=== PATIENT | female | born 1955 | race Caucasian/White ===

== ENCOUNTER 2016-09-16 18:32 | Emergency (ER) | payer BC ==
[~2016-09-16] VITALS: Ht 167.6 cm; Wt 78.2 kg
[2016-09-16 18:48] VITALS: O2SAT 84
[2016-09-16 19:03] LABS: BASO % 0.5 %; BASO ABS # 0.04 K/uL (0-0.2); COMPLETE YES; EOS % 1.2 %; HEMATOCRIT 42.8 % (37-47); IG% 0.1 %; LYMPH % 37.6 %; LYMPH ABS # 2.83 K/uL (1.2-3.4); MEAN CELL VOLUME 89.9 fL (80-100); MEAN CORPUSCULAR HEMOGLOBIN 29.4 pg (25-34); MEAN CORPUSCULAR HGB CONC 32.7 g/dl (32-36); MEAN PLATELET VOLUME 9.6 fL (7.4-10.4); MONO % 6.9 %; NEUT % 53.7 %; PLATELET COUNT 382 K/uL (130-400); RED BLOOD COUNT 4.76 M/uL (4.2-5.4); WHITE BLOOD COUNT 7.53 K/uL (4.8-10.8)
[2016-09-16 19:04] LABS: ISTAT CREATININE 0.8 mg/dl (0.6-1.3); ISTAT HEMOGLOBIN 15.3 g/dl (12.0-16.0); ISTAT IONIZED CALCIUM 1.15 mmol/l (1.12-1.32)
--- NOTE | 2016-09-16 19:09 | DIAGNOSTIC IMAGING REPORT ---
HEAD CT NONCONTRAST CT DOSE: 720.95 mGycm HISTORY: Altered mental status. Evaluate Fever/Sepsis TECHNIQUE: Multiaxial CT images of the head were performed without the use of intravenous contrast. Automated exposure control was utilized for this study. Comparison: None. Findings: The paranasal sinuses and mastoid air cells are clear. The calvarium and skull base are intact. There is no mass, hematoma, midline shift. The ventricles and sulci are within normal limits. Greater than expected density within the proximal left MCA likely representing a hyperdense left MCA sign. Subtle decreased density within the left caudate head consistent with the left MCA territory infarct. This is best in image 12. Impression: Hyperdense left MCA sign with decreased density within the left caudate head consistent with a left MCA territory infarct. Electronically signed by: Frank Elmore M.D. 09/16/2016 7:07 PM Dictated Date/Time: 09/16/2016 7:02 PM
[2016-09-16 19:11] VITALS: Ht 167.6 cm; Wt 78.2 kg
--- NOTE | 2016-09-16 19:24 | DIAGNOSTIC IMAGING REPORT ---
CHEST ONE VIEW PORTABLE HISTORY: Evaluate Fever/Sepsis COMPARISON: None. FINDINGS: The lungs are clear. Cardiac silhouette is normal in size. No pleural effusions. No pneumothorax. IMPRESSION: No acute process. Electronically signed by: Frank Elmore M.D. 09/16/2016 7:23 PM Dictated Date/Time: 09/16/2016 7:21 PM
[2016-09-16 19:26] LABS: ARTERIAL BLD GAS O2 SATURATION 98.1 % (90-95); ARTERIAL BLOOD GAS BASE EXCESS 1.9 mEq/L (-9-1.8); ARTERIAL BLOOD GAS HCO3 27 mmol/L (19-24); ARTERIAL BLOOD GAS PO2 112 mm/Hg (80-95); ARTERIAL BLOOD GAS pH 7.39 (7.35-7.45)
[2016-09-16] MEDS ORDERED: WLLSR150 PO (19:31)
[2016-09-16] MEDS ORDERED: HYDR-3983 PO (19:31)
[2016-09-16] MEDS ORDERED: CYCL10TA6 PO (19:31)
[2016-09-16] MEDS ORDERED: GABA600T PO (19:31)
[2016-09-16] MEDS ORDERED: IBUP-1450 PO (19:31)
[2016-09-16 19:36] LABS: ALLEN TEST POS (POS)
[2016-09-16 19:38] LABS: O2 ADMINISTRATION 2 L
[2016-09-16] MEDS ORDERED: NURSING VERBAL MED ORDER ONE (19:45)
[2016-09-16] MEDS ORDERED: ALTEPLASE IV SCH ×2 (19:45→19:46)
[2016-09-16] MEDS ORDERED: RECOMBINANT IV SCH ×2 (19:45→19:46)
[2016-09-16] MEDS ORDERED: SET 2260-0500 IV ONE (19:45)
[2016-09-16 19:54] LABS: ACETAMINOPHEN < 2 ug/ml (10-30)
[2016-09-16] MEDS ORDERED: SODIUM CHLORIDE 0.9% 1000ML 1,000 ML IV STA (20:02)
--- NOTE | 2016-09-16 20:05 | EMERGENCY ROOM VISIT NOTE ---
History Report prepared by Jazmin: Apollo De Jesus Under the Supervision of: Dr. Dm Camacho D.O. First contact with patient: 18:40 Chief Complaint: STROKE SYMPTOMS Stated Complaint: CANT SEE OUT OF L EYE,DISORIENTED,NAUSEA History of Present Illness The patient is a 61 year old female who presents to the Emergency Room with complaints of stroke-like symptoms. This history is limited secondary to the patient's altered mental status and inability to speak. This history is given by the patient's son secondary to this. She was last known well around 3 hours ago. At that time, the patient's 6 year old granddaughter apparently had a conversation with her, then went back home. Per the adults, she was last known well last night. 45 minutes ago, the patient called her son and told him to come over. She stated "something is wrong." When he got to her house, she could not see out of her left eye and she was significantly disoriented. She also noted left eye pain with some nausea. The patient has a history of degenerative disc disease in her neck, which her last surgery was 8 years ago. She is on chronic pain medication for this as well. They also note that the patient has neuropathy in her hands, left worse than right. At baseline, she is fine and self-sustainable. Source of History: family History Limited By: AMS, other (Inability to speak) Onset: 45 minutes ago Position: other (Global) Symptom Intensity: moderate Quality: other (Stroke-like Symptoms) Timing: constant Associated Symptoms: + nausea Review of Systems ROS is limited secondary to altered mental status and inability to speak. Family History Omitted secondary to the patient's age. Social History Smoking Status: Current Every Day Smoker Drug Use: none Marital Status: single Housing Status: lives alone Current/Historical Medications Scheduled Bupropion HCl (Bupropion HCl Sr), 150 MG PO BID Gabapentin (Neurontin), 600 MG PO BID Scheduled PRN Cyclobenzaprine Hcl (Flexeril), 10 MG PO BID PRN for Pain Hydrocodone/Acetaminophen 7.5MG/325MG (Walker 7.5MG/325MG), 1 TAB PO Q4-6HRS PRN for Pain Ibuprofen (Motrin), 600 MG PO QID PRN for Pain Allergies Coded Allergies: No Known Allergies (Unverified , 09/16/16) Physical Exam Vital Signs Date Time Temp Pulse Resp B/P (MAP) Pulse Ox O2 Delivery O2 Flow Rate FiO2 09/16/16 19:07 57 09/16/16 18:48 98 Nasal Cannula 2.0 09/16/16 18:48 84 Room Air 09/16/16 18:35 87 16 140/78 97 Room Air Physical Exam CONSTITUTIONAL/VITAL SIGNS: Reviewed / noted above. GENERAL: Non-toxic in appearance. No obvious trauma. INTEGUMENTARY: Warm, dry, and [place]. HEAD: Normocephalic. EYES: without scleral icterus or trauma. Pupils are 4 mm, reactive, and symmetric. ENT/OROPHARYNX: clear and moist. LYMPHADENOPATHY/NECK: Is supple without lymphadenopathy or meningismus. RESPIRATORY: Lungs clear and equal. CARDIOVASCULAR: Bradycardic rate and regular rhythm. GI/ABDOMEN: Soft and nontender. No organomegaly or pulsatile mass. No rebound or guarding. Normal bowel sounds. EXTREMITIES: Warm and well perfused. BACK: No CVA tenderness. NEUROLOGICAL: Does not respond verbally. Appears to have a left sided facial droop. Flaccid right arm and right leg. Positive Babinski's sign on left foot. PSYCHIATRIC: normal affect. MUSCULOSKELETAL: Normally developed with good muscle tone. Medical Decision & Procedures ER Provider Diagnostic Interpretation: Radiology results as stated below per my review and radiologist interpretation: HEAD CT NONCONTRAST CT DOSE: 720.95 mGycm HISTORY: Altered mental status. Evaluate Fever/Sepsis TECHNIQUE: Multiaxial CT images of the head were performed without the use of intravenous contrast. Automated exposure control was utilized for this study. Comparison: None. Findings: The paranasal sinuses and mastoid air cells are clear. The calvarium and skull base are intact. There is no mass, hematoma, midline shift. The ventricles and sulci are within normal limits. Greater than expected density within the proximal left MCA likely representing a hyperdense left MCA sign. Subtle decreased density within the left caudate head consistent with the left MCA territory infarct. This is best in image 12. Impression: Hyperdense left MCA sign with decreased density within the left caudate head consistent with a left MCA territory infarct. Electronically signed by: Frank Elmore M.D. 09/16/2016 7:07 PM Dictated Date/Time: 09/16/2016 7:02 PM CHEST ONE VIEW PORTABLE HISTORY: Evaluate Fever/Sepsis COMPARISON: None. FINDINGS: The lungs are clear. Cardiac silhouette is normal in size. No pleural effusions. No pneumothorax. IMPRESSION: No acute process. Electronically signed by: Frank Elmore M.D. 09/16/2016 7:23 PM Dictated Date/Time: 09/16/2016 7:21 PM Laboratory Results 09/16/16 18:45 Red Blood Count 4.76, Mean Corpuscular Volume 89.9, Mean Corpuscular Hemoglobin 29.4, Mean Corpuscular Hemoglobin Concent 32.7, Mean Platelet Volume 9.6, Neutrophils (%) (Auto) 53.7, Lymphocytes (%) (Auto) 37.6, Monocytes (%) (Auto) 6.9, Eosinophils (%) (Auto) 1.2, Basophils (%) (Auto) 0.5, Neutrophils # (Auto) 4.04, Lymphocytes # (Auto) 2.83, Monocytes # (Auto) 0.52, Eosinophils # (Auto) 0.09, Basophils # (Auto) 0.04 Test 09/16/16 18:45 09/16/16 18:50 09/16/16 18:51 09/16/16 19:09 White Blood Count 7.53 K/uL (4.8-10.8) Red Blood Count 4.76 M/uL (4.2-5.4) Hemoglobin 14.0 g/dL (12.0-16.0) Hematocrit 42.8 % (37-47) Mean Corpuscular Volume 89.9 fL (80-100) Mean Corpuscular Hemoglobin 29.4 pg (25-34) Mean Corpuscular Hemoglobin Concent 32.7 g/dl (32-36) Platelet Count 382 K/uL (130-400) Mean Platelet Volume 9.6 fL (7.4-10.4) Neutrophils (%) (Auto) 53.7 % Lymphocytes (%) (Auto) 37.6 % Monocytes (%) (Auto) 6.9 % Eosinophils (%) (Auto) 1.2 % Basophils (%) (Auto) 0.5 % Neutrophils # (Auto) 4.04 K/uL (1.4-6.5) Lymphocytes # (Auto) 2.83 K/uL (1.2-3.4) Monocytes # (Auto) 0.52 K/uL (0.11-0.59) Eosinophils # (Auto) 0.09 K/uL (0-0.5) Basophils # (Auto) 0.04 K/uL (0-0.2) RDW Standard Deviation 47.9 fL (36.4-46.3) RDW Coefficient of Variation 14.5 % (11.5-14.5) Immature Granulocyte % (Auto) 0.1 % Immature Granulocyte # (Auto) 0.01 K/uL (0.00-0.02) Salicylates Level 5.6 mg/dl (2.8-20) Acetaminophen Level < 2 ug/ml (10-30) Creatine Kinase MB Ratio (0-3.0) Bedside Hemoglobin 15.3 g/dl (12.0-16.0) Bedside Hematocrit 45 % (37-47) Bedside Sodium 140 mEq/L (135-144) Bedside Potassium 4.0 mEq/L (3.3-5.0) Bedside Chloride 102 mEq/L (101-112) Bedside Total CO2 27 mEq/l (24-31) Anion Gap 16.0 mmol/L (16-25) Bedside Blood Urea Nitrogen 7 mg/dl (7-18) Bedside Creatinine 0.8 mg/dl (0.6-1.3) Bedside Glucose (other) 126 mg/dl (70-99) Bedside Ionized Calcium (Calixto) 1.15 mmol/l (1.12-1.32) Bedside Glucose 125 mg/dl (70-90) Test 09/16/16 19:13 Arterial Blood pH 7.39 (7.35-7.45) Arterial Blood Partial Pressure CO2 46 mmHg (35-46) Arterial Blood Partial Pressure O2 112 mm/Hg (80-95) Arterial Blood HCO3 27 mmol/L (19-24) Arterial Blood Oxygen Saturation 98.1 % (90-95) Arterial Blood Base Excess 1.9 mEq/L (-9-1.8) Arterial Blood Gas Delivery 2 L Oleg Test POS (POS) Ammonia 17.0 umol/L (11-32) Ethyl Alcohol mg/dL < 3.0 mg/dl (0-3) Laboratory results as stated above per my review. Medications Administered Medications (Trade) Dose Ordered Sig/Chucho Route Start Time Stop Time Status Last Admin Dose Admin Alteplase, Recombinant 63 mg/ Empty Bag 63 ml @ 63 mls/hr TODAY@1946 IV 09/16/16 19:46 09/16/16 20:45 09/16/16 19:53 63 MLS/HR Alteplase, Recombinant 7 mg/ Syringe 7 ml @ 7 mls/min TODAY@1945 IV 09/16/16 19:45 09/16/16 19:46 DC 09/16/16 19:48 7 MLS/MIN ECG Indication: altered mental status Rate (beats per minute): 48 Rhythm: sinus bradycardia Findings: no acute ischemic change, no ectopy ED Course 1839: Previous medical records were reviewed. The patient was evaluated in room B1. A complete history and physical examination was performed. 1907: I spoke with Dr. Silvestre - [facility], at this time. He is going to evaluate the patient via the Telemedicine service. 1929: Dr. Silvestre has decided to administer t-PA. 1944: Ordered Alteplase, Recombinant 7 mg/ Syringe 7 ml @ 7 mls/min IV 1945: Alteplase, Recombinant 63 mg/ Empty Bag 63 ml @ 63 mls/hr Protocol IV 1952: I was informed that Dr. Silvestre would like to evaluate the patient for further management in [place]. She will be transferred there via Helicopter. 2002: Nss 125cc/hr Medical Decision Differential includes acute cardiac dysrhythmia, microinfarction, CVA, TIA, dehydration, anemia, electrolyte disturbance, seizure, trauma, intracranial bleeding, acute vascular catastrophe, thoracic aortic dissection, PE, abdominal aortic aneurysm rupture, infection, hypoglycemia, overdose, trauma. Medication Reconciliation: I attest that I have personally reviewed the patient' s current medication list. Patient was found to have a slightly elevated blood pressure due to circumstances. I do not believe that the patient requires hypertension monitoring. This is a 61-year-old female who presents to the ED with a chief complaint of CVA-like symptoms. The patient had a conversation with her 6-year-old granddaughter that the granddaughter reported was a normal conversation about 3 hours prior to the patient's presentation. This was around 4:00. Around 6:00, the patient contacted her son and seemed to be having difficulty with her words. They live next door and went over to check on her. At that time, she was awake and alert and she was having difficulty with word finding and some slurring of her speech. At the time she stated that she wanted to take a shower as well. They did not allow her to take a shower but brought her to the ED for evaluation. At the time of evaluation, she was at the [address] scan of the head revealed an acute left MCA territory infarct. Shows alert was called at the time the patient was over in CT scan. Dr. Eugene from the [facility] neurology telemetry stroke program evaluating this patient and I spoke with him prior to this. He recommended thrombolytics. IV TPA was administered. The patient is going to be transported to [facility]. Patient's laboratory studies all appear to be within normal limits. EKG showed a sinus bradycardia. The patient's blood pressure remained slightly elevated but near normal. She did not have any hypotensive or significantly hypertensive episodes. She had some hypoxia when she initially arrived likely related to hypoventilation. Nasal cannula oxygen was used to address this successfully. The patient is nonverbal but does open eyes spontaneously. The patient be transported by helicopter. Consults Time Called: 1905 Consulting Physician: Dr. Silvestre - [facility] Returned Call: [phone] He will be evaluating the patient for possible t-PA administration. He then notified me that he would like the patient to be transferred to [facility] for further management. Impression Primary Impression: Acute CVA (cerebrovascular accident) Critical Care I have personally spent greater than 35 minutes of critical care time in the direct management of this patient. This includes bedside care, interpretation of diagnostic studies, and testing, discussion with consultants, patient, and family members, and other required patient management activities. This 35 minutes is in excess of all separately billable procedures. Scribe Attestation The scribe's documentation has been prepared under my direction and personally reviewed by me in its entirety. I confirm that the note above accurately reflects all work, treatment, procedures, and medical decision making performed by me. Departure Information Dispostion Transfer Acute Care Facility Referrals Maico Ramos M.D. (PCP) Patient Instructions My [facility] Stroke History Time Last Known Well 3 hours ago Stroke t-PA Criteria Reviewed Meets criteria for t-PA Reason t-PA Not Given Treatment provided - N/A
[2016-09-16 20:16] VITALS: BP 149/80
[2016-09-16 20:17] VITALS: PULSE 57; O2SAT 100
[2016-09-16 20:43] LABS: ALKALINE PHOSPHATASE 83 U/L (45-117); ALT/SGPT 13 U/L (12-78); AST/SGOT 19 U/L (15-37); BLOOD UREA NITROGEN 8 mg/dl (7-18); BUN/CREATININE RATIO 8.5 (10-20); C-REACTIVE PROTEIN 0.76 mg/dl (0-0.29); CALCIUM 9.7 mg/dl (8.5-10.1); CARBON DIOXIDE 27 mmol/L (21-32); CHLORIDE 105 mmol/L (98-107); CKMB/CK RATIO 0.7 (0-3.0); CREATININE 0.89 mg/dl (0.60-1.20); GLUCOSE 123 mg/dl (70-99); SODIUM 140 mmol/L (136-145); THYROID STIMULATING HORMONE 0.587 uIu/ml (0.300-4.500)
[2016-09-16 21:05] LABS: URINE APPEARANCE CLOUDY (CLEAR); URINE BILIRUBIN NEG (NEG); URINE COLOR DK YELLOW; URINE EPITHELIAL CELL AUTO >30 /lpf (0-5); URINE NITRITE POS (NEG); URINE SPECIFIC GRAVITY 1.022 (1.000-1.030); UROBILINOGEN NEG (NEG)
[2016-09-16 21:11] LABS: MANUAL MICROSCOPIC REQUIRED? NO; REVIEW REQ? YES
[2016-09-16 22:09] LABS: BENZODIAZEPINE, URINE NEG (NEG); COCAINE,URINE NEG (NEG); PHENCYCLIDINE, URINE NEG (NEG)
== END 2016-09-16 20:46 | disposition short-term general hospital (02) ==
LOC: C.EDB 18:33
DX: I63.312 Cerebral infarction due to thrombosis of left middle cerebral artery (principal); F17.200 Nicotine dependence, unspecified, uncomplicated; M50.30 Other cervical disc degeneration, unspecified cervical region; G62.9 Polyneuropathy, unspecified

== ENCOUNTER → 2016-10-17 | Outpatient (CLI) | payer BC ==
[~2016-10-17] MED LIST: CYCL10TA6 PO; GABA600T PO; HYDR-3983 PO; IBUP-1450 PO; WLLSR150 PO
[2016-10-17 08:14] LABS: BASO % 0.6 %; BASO ABS # 0.04 K/uL (0-0.2); COMPLETE YES; EOS % 1.7 %; HEMATOCRIT 36.4 % (37-47); IG% 0.1 %; LYMPH % 25.5 %; LYMPH ABS # 1.81 K/uL (1.2-3.4); MEAN CELL VOLUME 91.9 fL (80-100); MEAN CORPUSCULAR HEMOGLOBIN 30.1 pg (25-34); MEAN CORPUSCULAR HGB CONC 32.7 g/dl (32-36); MONO % 9.6 %; NEUT % 62.5 %; PLATELET COUNT 281 K/uL (130-400); RED BLOOD COUNT 3.96 M/uL (4.2-5.4)
[2016-10-17 08:23] LABS: ALT/SGPT 37 U/L (12-78); BLOOD UREA NITROGEN 17 mg/dl (7-18); BUN/CREATININE RATIO 22.3 (10-20); CALCIUM 9.4 mg/dl (8.5-10.1); CARBON DIOXIDE 28 mmol/L (21-32); CHLORIDE 107 mmol/L (98-107); CHOLESTEROL 97 mg/dl (0-200); CREATININE 0.77 mg/dl (0.60-1.20); GLUCOSE 90 mg/dl (70-99); MAGNESIUM 2.3 mg/dl (1.8-2.4); SODIUM 142 mmol/L (136-145)
[2016-10-17 08:31] LABS: ALKALINE PHOSPHATASE 88 U/L (45-117); AST/SGOT 24 U/L (15-37); CHOLESTEROL/HDL RATIO 1.6; HDL CHOLESTEROL 60 mg/dl; LDL CHOLESTEROL CALCULATED 28 mg/dl; TRIGLYCERIDES 43 mg/dl (0-150); VERY LOW DENSITY LIPOPROT CALC 9 mg/dl
[2016-10-17 09:00] LABS: ESTIMATED AVERAGE GLUCOSE 111 mg/dl; HA1C FLAG Normal (Normal)
--- NOTE | 2016-10-19 09:43 | CODING QUERY NO DIAGNOSIS ---
TREATMENT RENDERED WITHOUT A DIAGNOSIS To promote full compliance with coding requirements relating to patient care, physician participation is requested in all cases of structures technician uncertainty. Please assist us with providing a diagnosis/symptom for the test(s) below: A diagnosis/symptom was not documented on your Order. A valid diagnosis/symptom is required to bill all insurances. Please remember that we are unable to code a diagnosis of rule out, probable, possible, questionable, or suspected. Tests that require a diagnosis: DOS 10/17 * Hba1c DIAGNOSIS: * CMP DIAGNOSIS: * CBC DIAGNOSIS: * TSH DIAGNOSIS: * Mag DIAGNOSIS: * Lipids DIAGNOSIS: Provider Signature: Date: Thank you Megan Queen Health Information Management Once completed, please kindly fax back to [phone] For questions please call [phone]
== END ==
LOC: C.LABCC 07:55
PROVIDERS: ATTEND Internal Medicine
DX: E11.9 Type 2 diabetes mellitus without complications (principal); F17.200 Nicotine dependence, unspecified, uncomplicated; E78.5 Hyperlipidemia, unspecified; Z86.73 Personal history of transient ischemic attack (TIA), and cerebral infarction without residual deficits

== ENCOUNTER 2018-04-04 15:01 | Observation (INO) ==
[2018-04-04] MEDS ORDERED: ASPIRIN CHEW 324 MG PO STA (15:21)
[2018-04-04] MEDS ORDERED: NITROGLYCERIN SL 0.4 MG/TAB TAB SL PRN (15:21)
[2018-04-04] MEDS ORDERED: SODIUM CHLORIDE 0.9% 1000ML 1,000 ML IV SCH (15:30)
[2018-04-04 15:31] LABS: Basophils # (auto) 0.02 K/uL (0-0.2); Basophils % (auto) 0.3 %; Eosinophils # (auto) 0.07 K/uL (0-0.5); Hematocrit (blood only) 40.5 % (37-47); Lymphocytes % (auto) 27.5 %; Mean Corpuscular Hgb Conc 34.6 g/dL (32-36); Mean Platelet Volume 9.7 fL (7.4-10.4); Monocytes # (auto) 0.56 K/uL (0.11-0.59); Monocytes % (auto) 7.7 %; Neutrophils # (auto) 4.62 K/uL (1.4-6.5); Neutrophils % (auto) 63.5 %; Platelet Count 306 K/uL (130-400); RDW Coefficient of Variation 14.1 % (11.5-14.5); RDW Standard Deviation 46.3 fL (36.4-46.3); White Blood Count 7.27 K/uL (4.8-10.8)
[2018-04-04 15:39] LABS: Partial Thromboplastin Time 24.9 Seconds (21.0-31.0); Prothrombin Time 10.2 Seconds (9.0-12.0)
[2018-04-04 15:47] LABS: BUN Creatinine Ratio 12.1 (10-20); Blood Urea Nitrogen 13 mg/dl (7-18); Calcium 9.4 mg/dl (8.5-10.1); Carbon Dioxide 28 mmol/L (21-32); Chloride 104 mmol/L (98-107); Creatinine Clr Calc Pharmacy 48.8 ml/min; Est GFR (African American) 63.5; Est GFR (Non-African American) 54.7; Glucose 114 mg/dl (70-99); Potassium 3.8 mmol/L (3.5-5.1); Sodium 138 mmol/L (136-145)
[2018-04-04 15:52] LABS: Troponin I < 0.015 ng/ml (0-0.045)
--- NOTE | 2018-04-04 16:25 | XRay Report ---
XR chest 2V routine CLINICAL HISTORY: Atypical chest pain COMPARISON STUDY: 09/16/2016 FINDINGS: The cardiac and mediastinal contours are normal. There is no evidence of focal pulmonary co nsolidation. There is no evidence of failure. No pleural effusions are visualized.[ Postsurgical kim ges are present within the cervical spine. IMPRESSION: No active disease in the chest. Electronically signed by: Dirk Ch M.D. 04/04/2018 4:23 PM
--- NOTE | 2018-04-04 17:09 | Emergency Department Note ---
Entered by Misbah Man acting as a scribe for Kevin Miller History of Present Illness General Chief complaint: Chest Pain Stated complaint: NEURO SX Time Seen by Provider: 04/04/18 15:15 Source: patient History of Present Illness Onset (ago): day(s) 7 Location: chest Pain Consistency: + intermittent Maximum Pain Intensity: 4 Quality: + other (heaviness/pressure) Associated symptoms: + other (numbness, left-sided weakness and speech problems are all at baseline per patient s/p stroke); no cough, no shortness of breath and no syncope The patient is a 63 year old female who presents to the Emergency Room with complaints of intermittent upper-left chest heaviness for the past seven days. The patient reports rates this heaviness/pressure at 4/10 in severity. She reports that she has speech problems and left-sided numbness and weakness at baseline following a stroke in 2016. She denies any new numbness, weakness, or speech difficulties. She also denies cough, shortness of breath, loss of consciousness, or recent long travel. She notes a history of cardiac stent placement. She states that her PCP is Dr. Josue Coles. Home Medications Home Medications Medication Instructions Recorded Confirmed Type aspirin, buffered 325 mg PO DAILY 04/04/18 04/04/18 History atorvastatin 40 mg PO HS 04/04/18 04/04/18 History bupropion HCl 150 mg PO BID 04/04/18 04/04/18 History clopidogrel 75 mg PO DAILY 04/04/18 04/04/18 History Allergies Allergy/AdvReac Type Severity Reaction Status Date / Time No Known Allergies Allergy Verified 04/04/18 15:44 Past Med/Surg History Medical History HLD (hyperlipidemia) (Chronic) History of ischemic cerebrovascular accident (CVA) with residual deficit ( Chronic) H/o L MCA infarct in August 2016 requiring transfer to [place] for L ICA stent placement. Has residual aphasia and R facial droop. Mood disorder (Chronic) Surgical History H/O cervical spine surgery (Resolved) Has had multiple neck surgeries, most recently 2009 in [place] H/O Spinal surgery (Resolved) Family History Grandfather (Maternal) Heart disease Grandmother (Paternal) Heart disease Other Alzheimer disease Social History Current Living Situation: Alone Other Information That Helps Us Care for You: No Feels Safe at Home: Yes Safety Concerns: Feels Safe At This Time Smoking Status: Former smoker Hx Alcohol Use: Yes Alcohol Intake Frequency: holidays/special occasions only Hx Substance Use: No Beliefs That Will Affect Care: None Preferred Language: Tajik Communication Ability: Effective Circuit Court Magistrate Required: No Review of Systems See HPI for pertinent positives & negatives. and A total of 10 systems reviewed and were otherwise negative Physical Exam Vital Signs Vital Signs - 24 hr 04/04/18 15:02 04/04/18 15:35 04/04/18 16:07 Temperature 36.6 C Temperature Source Oral Sepsis Recent Fever Within 48 Hours No Sepsis Action Taken by Nursing No Action Required Pulse Rate 83 Pulse Rate [Left] 63 60 Pulse Rhythm [Left] Regular Pulse Strength [Left] Normal Respiratory Rate 18 18 20 Respiratory Effort / Characteristics Non-Labored Spontaneous Non-Labored Non-Labored Respiratory Depth Normal Normal Normal Respiratory Pattern Regular Blood Pressure 117/82 Blood Pressure [Left Arm] 105/79 126/81 Blood Pressure Mean 93 Blood Pressure Mean [Left Arm] 87 96 Blood Pressure Position Sitting Blood Pressure Position [Left Arm] Pulse Oximetry 98 98 98 Oxygen Delivery Method Room Air Room Air Room Air 04/04/18 18:40 04/04/18 18:46 04/04/18 20:48 Temperature 36.5 C Temperature Source Oral Sepsis Recent Fever Within 48 Hours Sepsis Action Taken by Nursing Pulse Rate 63 Pulse Rate [Left] 67 Pulse Rhythm [Left] Pulse Strength [Left] Respiratory Rate 17 20 Respiratory Effort / Characteristics Non-Labored Spontaneous Respiratory Depth Normal Respiratory Pattern Regular Blood Pressure 137/77 Blood Pressure [Left Arm] 150/83 H Blood Pressure Mean Blood Pressure Mean [Left Arm] 105 Blood Pressure Position Blood Pressure Position [Left Arm] Sitting Pulse Oximetry 99 96 Oxygen Delivery Method Room Air Room Air Room Air GENERAL: She is oriented to person, place, and time. She appears well-developed and well-nourished. She does not appear distressed. HENT: Exam performed. Head: Normocephalic and atraumatic. Right Ear: External ear normal. No mastoid tenderness. Left Ear: External ear normal. No mastoid tenderness. Mouth/Throat: The oropharynx is clear and moist. No trismus in the jaw. No dental abscesses or uvula swelling. No oropharyngeal exudate or tonsillar abscesses. EYES: Conjunctivae and EOM are normal. Pupils are equal, round, and reactive to light. Right eye exhibits no discharge. Left eye exhibits no discharge. No scleral icterus. NECK: Normal range of motion. Neck supple. No JVD present. No spinous process tenderness present. No carotid bruit present. No rigidity. No tracheal deviation and normal range of motion present. No Brudzinski's sign and no Kernig 's sign noted. CV: Normal rate, regular rhythm, normal heart sounds and intact distal pulses. There is no peripheral edema. Palpable radial pulses bue. PULM/CHEST: Effort normal and breath sounds normal. No respiratory distress. No stridor. She has no wheezes. She has no rales. Chest Wall: She exhibits no tenderness. ABD: The abdomen is soft. Bowel sounds are normal. She has no distension. No mass is present. There is no tenderness. There is no rebound, no guarding, no Mcfarlane's sign and no tenderness at McBurney's point. Rovsig negative. MUSC/SKEL: Normal range of motion. There is no peripheral edema, tenderness or deformity. LYMPH: No cervical adenopathy. NEURO: She is alert and oriented to person, place, and time. She has mild dysarthria and left-sided weakness at baseline, s/p stroke per patient. Otherwise no cranial nerve deficit or sensory deficit. Coordination and gait normal. GCS eye subscore is 4. GCS verbal subscore is 5. GCS motor subscore is 6. cerbellar tests wnl. SKIN: Skin is warm and dry. She is not diaphoretic. PSYCH: She has a normal mood and affect. Her behavior is normal. Judgment and thought content normal. Course 1517: Past medical records reviewed. The patient was evaluated in room B12A, and a complete history and physical examination were performed. 165: Vital signs are stable. Labs and imaging are within normal limits. The patient states that she has not seen cardiology in quite some time and has not had a recent cardiac workup. Given the patient's chest pain, history of CAD requiring cardiac stents, hypertension, and history of stroke, the patient will be admitted to the hospital for chest pain rule out ACS. I spoke to Johanna Guzman PA-C and was told to admit the patient to Dr. Hernandez. Consultations Consultation #1: I consulted Johanna Guzman PA-C: [facility] Hospitalist. She will reevaluate the patient for hospitalization. Time: 16:50 Administered Medications Atorvastatin Calcium (Lipitor) 40 mg PO HS TEJ Stop: 05/04/18 20:59 Last Admin: 04/04/18 21:23 Dose: 40 mg Bupropion HCl (Wellbutrin-Sr) 150 mg PO BID TEJ Stop: 05/04/18 20:59 Last Admin: 04/04/18 21:23 Dose: 150 mg Heparin Sodium (Porcine) (Heparin Sodium (Porcine)) 5,000 units SQ Q12 TEJ Stop: 05/04/18 20:59 Last Admin: 04/04/18 21:23 Dose: 5,000 units Nitroglycerin (Nitrostat) 0.4 mg SL UD PRN PRN Reason: Chest Pain Stop: 05/04/18 15:20 Last Admin: 04/04/18 15:34 Dose: 0.4 mg Discontinued Medications Aspirin (Aspirin) 324 mg PO NOW STA Stop: 04/04/18 15:22 Last Admin: 04/04/18 15:34 Dose: Not Given Sodium Chloride (Nss 1000ml) 1,000 mls @ 999 mls/hr IV .Q1H1M TEJ Stop: 04/04/18 16:30 Last Infusion: 04/04/18 16:22 Dose: 0 mls/hr Admin: 04/04/18 15:34 Dose: 999 mls/hr Medical Decision Making Medical Records Attestation: I reviewed the patient's medical records. Home Medications Current Medication List: was personally reviewed by me Laboratory Data Attestation: I reviewed the patient's lab results. Result diagrams: 04/04/18 15:20 04/04/18 15:20 Lab Results 04/04/18 04/04/18 04/04/18 Range/Units 15:20 15:20 15:20 WBC 7.27 (4.8-10.8) K/uL RBC 4.50 (4.2-5.4) M/uL Hgb 14.0 (12.0-16.0) g/dL Hct 40.5 (37-47) % MCV 90.0 (80-100) fL MCH 31.1 (25-34) pg MCHC 34.6 (32-36) g/dL RDW Std Deviation 46.3 (36.4-46.3) fL RDW Coeff of Frankie 14.1 (11.5-14.5) % Plt Count 306 (130-400) K/uL MPV 9.7 (7.4-10.4) fL Immature Gran % (Auto) 0.0 % Neut % (Auto) 63.5 % Lymph % (Auto) 27.5 % Bonner % (Auto) 7.7 % Eos % (Auto) 1.0 % Baso % (Auto) 0.3 % Immature Gran # (Auto) 0.00 (0.00-0.02) K/uL Neut # (Auto) 4.62 (1.4-6.5) K/uL Lymph # (Auto) 2.00 (1.2-3.4) K/uL Bonner # (Auto) 0.56 (0.11-0.59) K/uL Eos # (Auto) 0.07 (0-0.5) K/uL Baso # (Auto) 0.02 (0-0.2) K/uL PT 10.2 (9.0-12.0) Seconds INR 1.0 (0.9-1.1) APTT 24.9 (21.0-31.0) Seconds PTT Ratio 1.0 Sodium 138 (136-145) mmol/L Potassium 3.8 (3.5-5.1) mmol/L Chloride 104 (98-107) mmol/L Carbon Dioxide 28 (21-32) mmol/L Anion Gap 6.0 (3-11) BUN 13 (7-18) mg/dl Creatinine 1.09 (0.6-1.2) mg/dl Est Cr Clr Drug Dosing 48.8 ml/min Est GFR ( Amer) 63.5 Est GFR (Non-Af Amer) 54.7 BUN/Creatinine Ratio 12.1 (10-20) Glucose 114 H (70-99) mg/dl Calcium 9.4 (8.5-10.1) mg/dl Troponin I < 0.015 (0-0.045) ng/ml 04/04/18 04/04/18 Range/Units 18:34 21:15 WBC (4.8-10.8) K/uL RBC (4.2-5.4) M/uL Hgb (12.0-16.0) g/dL Hct (37-47) % MCV (80-100) fL MCH (25-34) pg MCHC (32-36) g/dL RDW Std Deviation (36.4-46.3) fL RDW Coeff of Frankie (11.5-14.5) % Plt Count (130-400) K/uL MPV (7.4-10.4) fL Immature Gran % (Auto) % Neut % (Auto) % Lymph % (Auto) % Bonner % (Auto) % Eos % (Auto) % Baso % (Auto) % Immature Gran # (Auto) (0.00-0.02) K/uL Neut # (Auto) (1.4-6.5) K/uL Lymph # (Auto) (1.2-3.4) K/uL Bonner # (Auto) (0.11-0.59) K/uL Eos # (Auto) (0-0.5) K/uL Baso # (Auto) (0-0.2) K/uL PT (9.0-12.0) Seconds INR (0.9-1.1) APTT (21.0-31.0) Seconds PTT Ratio Sodium (136-145) mmol/L Potassium (3.5-5.1) mmol/L Chloride (98-107) mmol/L Carbon Dioxide (21-32) mmol/L Anion Gap (3-11) BUN (7-18) mg/dl Creatinine (0.6-1.2) mg/dl Est Cr Clr Drug Dosing ml/min Est GFR ( Amer) Est GFR (Non-Af Amer) BUN/Creatinine Ratio (10-20) Glucose (70-99) mg/dl Calcium (8.5-10.1) mg/dl Troponin I < 0.015 < 0.015 (0-0.045) ng/ml Imaging Data Radiologist's Impression: Radiology results as stated below per my review and the radiologist's interpretation: XR chest 2V routine CLINICAL HISTORY: Atypical chest pain COMPARISON STUDY: 09/16/2016 FINDINGS: The cardiac and mediastinal contours are normal. There is no evidence of focal pulmonary consolidation. There is no evidence of failure. No pleural effusions are visualized.[ Postsurgical changes are present within the cervical spine. IMPRESSION: No active disease in the chest. Electronically signed by: Dirk Ch M.D. 04/04/2018 4:23 PM ECG Data Attestation: I personally reviewed and interpreted this ECG as follows: Indication: chest pain Rate (beats per minute): 62 Rhythm: sinus rhythm Findings: + other (CA, QRS and QTC intervals within normal limits); no ST depression and no ST elevation Blood Pressure Blood Pressure Findings: Normal blood pressure Blood Pressure Disposition: did not require urgent referral MDM Narrative Vital signs are stable. Labs and imaging are within normal limits. The patient states that she has not seen cardiology in quite some time and has not had a recent cardiac workup. Given the patient's chest pain, history of CAD requiring cardiac stents, hypertension, and history of stroke, the patient will be admitted to the hospital for chest pain rule out ACS. I spoke to TRAM Mullen and was told to admit the patient to Dr. Hernandez. Impression & Plan Chest pain Discharge Plan Visit Data *Final* Discharge Date/Time: 04/04/18 18:46 Chief Complaint: Chest Pain Stated Complaint: NEURO SX ED Provider: Kevin Miller Discharge Problem: Chest pain Patient Disposition: Admitted As Inpatient Discharge Instructions Interventions: ED Discharge Assessment Last Done: 04/04/18 18:46 The scribe's documentation has been prepared under my direction and personally reviewed by me in its entirety. I confirm that the note above accurately reflects all work, treatment, procedures, and medical decision making performed by me.
--- NOTE | 2018-04-04 18:08 | History & Physical Report ---
Date of Service April 04, 2018 Assessment & Plan (1) Chest pain: This is a 63-year-old female with a PMH of left MCA infarct in August 2016 with residual expressive aphasia and R facial droop, HLD and cervical spine radiculopathy who presents with intermittent chest pain. -Atypical presentation with left chest pressure, intermittent, worse with rest -Experiences chronic left wrist numbness, attributed to cervical stenosis -R/o ACS; risk factors include HLD -Cervical disc disease possibly contributing to pain -Initial troponin negative -EKG-without acute ST changes -CXR-no acute abnormalities -Trend serial cardiac enzymes -Check resting echo -Repeat EKG in am -Consult cardiology for possible out-patient stress test (2) Left cervical radiculopathy: H/o multiple surgeries, most recently in [place] in 2009 -Has chronic paresthesias in L wrist -Tylenol PRN (3) HLD (hyperlipidemia): Continue home dose atorvastatin (4) History of ischemic cerebrovascular accident (CVA) with residual deficit: History of L MCA infarct in August 2016 requiring tPA and then transfer to [place] for L ICA stent placement -MRI revealed small hemorrhagic conversion in L MCA region -Initially had many deficits, now with expressive aphasia and R facial droop only -Continue aspirin 325mg and plavix 75mg daily (5) Mood disorder: Continue Wellbutrin DVT Ppx: SQ heparin Code status: FULL code PCP: Josue Law Dispo: Observation telemetry. Plan to return home once medically stable. Patient seen in collaboration with Dr. Hernandez. Please see addendum. History of Present Illness Chief Complaint: Chest pain Primary Care Provider: Josue Law DO This is a 63-year-old female with a PMH of left MCA infarct in August 2016 with residual expressive aphasia and R facial droop, HLD and cervical spine radiculopathy who presents with intermittent chest pain. Patient states that she has been experiencing left-sided heaviness intermittently over the past few months, but has been happening more frequently this week. Pain is non- radiating and patient denies any associated shortness of breath, diaphoresis, nausea or vomiting. Denies personal history of MN or cardiac workup in the past. Is on aspirin and plavix for history of CVA with carotid stent placement at [place] in August 2016. Allergies Allergy/AdvReac Type Severity Reaction Status Date / Time No Known Allergies Allergy Verified 04/04/18 15:44 Home Medications Home Medications Medication Instructions Recorded Confirmed Type aspirin, buffered 325 mg PO DAILY 04/04/18 04/04/18 History atorvastatin 40 mg PO HS 04/04/18 04/04/18 History bupropion HCl 150 mg PO BID 04/04/18 04/04/18 History clopidogrel 75 mg PO DAILY 04/04/18 04/04/18 History Past Med/Surg History Medical History HLD (hyperlipidemia) (Chronic) History of ischemic cerebrovascular accident (CVA) with residual deficit ( Chronic) H/o L MCA infarct in August 2016 requiring transfer to [place] for L ICA stent placement. Has residual aphasia and R facial droop. Mood disorder (Chronic) Surgical History H/O cervical spine surgery (Resolved) Has had multiple neck surgeries, most recently 2009 in [place] H/O Spinal surgery (Resolved) Family History Grandfather (Maternal) Heart disease Grandmother (Paternal) Heart disease Other Alzheimer disease Social History Current Living Situation: Alone Other Information That Helps Us Care for You: No Feels Safe at Home: Yes Safety Concerns: Feels Safe At This Time Smoking Status: Former smoker Hx Alcohol Use: Yes Alcohol Intake Frequency: holidays/special occasions only Hx Substance Use: No Beliefs That Will Affect Care: None Preferred Language: Occitan Communication Ability: Effective [employer] Stamp Die Inspector Required: No Review of Systems Constitutional: no fever, no chills and no weakness Eyes: no diplopia Ear, Nose, Mouth, Throat: no nasal congestion, no sore throat and no dysphagia Respiratory: no cough, no dyspnea and no wheezing Cardiovascular: no chest pain, no radiating jaw, neck or arm pain, no dyspnea on exertion and no palpitations Gastrointestinal: no abdominal pain, no nausea and no vomiting Genitourinary (Female): no dysuria and no hematuria Musculoskeletal: + neck pain and + joint pain; no muscle weakness Integumentary: no non-healing lesions and no change in skin color Neurologic: + paresthesia (Left wrist (chronic from cervical stenosis) ) and + abnormal speech (residual aphasia from 2017 CVA) Psychiatric: no behavioral changes Physical Exam 2 Vital Signs (Past 24 Hours): Last Vital Signs Temp 36.6 C 04/04/18 15:02 Pulse 60 04/04/18 16:07 Resp 20 04/04/18 16:07 BP 126/81 04/04/18 16:07 Pulse Ox 98 04/04/18 16:07 Physical Exam: General Appearance: WD/WN, no apparent distress, resting comfortably Head: normocephalic, atraumatic Eyes: normal inspection, PERRL, EOMI ENT: hearing grossly normal, pharynx normal (moist mucous membranes) Neck: supple, no JVD, no adenopathy Respiratory/Chest: No chest wall tenderness. Lungs clear to auscultation. No wheezes, rales or rhonci. No respiratory distress or accessory muscle use Cardiovascular: regular rate, rhythm, no murmur, normal peripheral pulses Abdomen/GI: normal bowel sounds, soft, non-tender to palpation Extremities/Musculoskelatal: normal inspection, no calf tenderness, normal capillary refill, no pedal edema Neurologic/Psych: alert, normal mood/affect, oriented x 3. +expressive aphasia , R facial droop (residual deficits from CVA) Skin: normal color, warm/dry Results & Data Laboratory Results Short CBC 04/04/18 Range/Units 15:20 WBC 7.27 (4.8-10.8) K/uL Hgb 14.0 (12.0-16.0) g/dL Hct 40.5 (37-47) % Plt Count 306 (130-400) K/uL BMP 04/04/18 15:20 Sodium 138 Potassium 3.8 Chloride 104 Carbon Dioxide 28 BUN 13 Creatinine 1.09 Glucose 114 H Calcium 9.4 Cardiac Enzymes 04/04/18 04/04/18 Range/Units 15:20 18:34 Troponin I < 0.015 < 0.015 (0-0.045) ng/ml Diagnostic Findings CXR: IMPRESSION: No active disease in the chest. ECG Rhythm: normal sinus Code Status & VTE Plan Code Status FULL VTE Prophylaxis Plan VTE Prophylaxis will be ordered: Yes Supervising Physician Co-Signing Physician Notes HISTORY: Record reviewed. Patient interviewed and examined. Care coordinated with Johanna Guzman PA-C. Please refer to her documentation for patient's history. Briefly, 63 YO female with history of cerebrovascular disease, s/p stroke treated with TPA and carotid stenting; also has history of cervical radiculopathy. Presents to ED with intermittent chest pain and upper extremity discomfort. EXAM: General- no distress Lungs- clear to auscultation; no respiratory distress Cardiovascular- RRR; no murmur; no gallop; no JVD; no pretibial edema Abdomen- + bowel sounds, soft, nontender Extremities- no cyanosis; no calf tenderness Neuro- alert, oriented; expressive aphasia Skin- warm & dry DATA: Trop < 0.015. Other lab studies as noted. Chest x-ray negative. EKG performed at 1513 reviewed and demonstrated NSR at 62 / minute, minimal ST depression III, aVF, V 4-6. ASSESSMENT AND PLAN: Intermittent chest pain. Known cerebrovascular disease. Troponin negative. Minimal ST depression inferolaterally on EKG. Check serial troponins. Consult Cardiology. Please refer to TRAM Guzman's documentation for discussion of other issues.
[2018-04-04] MEDS ORDERED: ONDANSETRON INJ 2 MG/ML 2 ML VIAL IV PRN (18:44)
[2018-04-04] MEDS ORDERED: ACETAMINOPHEN 325 MG TAB PO PRN (18:44)
[2018-04-04] MEDS ORDERED: POLYETHYLENE (MIRALAX) 17 GM PACK PO PRN (18:44)
[2018-04-04] MEDS ORDERED: ATORVASTATIN 40 MG TAB PO SCH (21:00)
[2018-04-04] MEDS: BuPROPion SR 150 MG TABCR PO SCH (21:23)
[2018-04-04] MEDS: HEPARIN SOD 5,000 UNIT/0.5 ML VIAL SQ SCH (21:23)
[2018-04-05 03:26] LABS: Hematocrit (blood only) 38.1 % (37-47); Hemoglobin 12.8 g/dL (12.0-16.0); Mean Corpuscular Hgb Conc 33.6 g/dL (32-36); Mean Corpuscular Volume 90.3 fL (80-100); Mean Platelet Volume 9.6 fL (7.4-10.4); Platelet Count 281 K/uL (130-400); RDW Standard Deviation 46.5 fL (36.4-46.3); Red Blood Count 4.22 M/uL (4.2-5.4); White Blood Count 6.21 K/uL (4.8-10.8)
[2018-04-05 03:44] LABS: BUN Creatinine Ratio 12.8 (10-20); Blood Urea Nitrogen 12 mg/dl (7-18); Carbon Dioxide 30 mmol/L (21-32); Chloride 109 mmol/L (98-107); Creatinine Clr Calc Pharmacy 57.2 ml/min; Est GFR (African American) 76.9; Est GFR (Non-African American) 66.3; Glucose 86 mg/dl (70-99); Potassium 3.6 mmol/L (3.5-5.1); Sodium 141 mmol/L (136-145)
[2018-04-05 03:48] LABS: Chol HDL Ratio 2; Cholesterol 128 mg/dl (0-200); HDL Cholesterol 67 mg/dl; LDL Cholesterol Calculated 45 mg/dl; Triglycerides 78 mg/dl (0-150); Troponin I < 0.015 ng/ml (0-0.045); VLDL Cholesterol 16 mg/dl
[2018-04-05] MEDS ORDERED: CLOPIDOGREL BISULFATE 75 MG TAB PO SCH (09:00)
[2018-04-05] MEDS ORDERED: ASPIRIN/ALUM/MAGNES/CAL CARB 325 MG TAB PO SCH (09:00)
[2018-04-05] MEDS: BuPROPion SR 150 MG TABCR PO SCH (09:13)
[2018-04-05] MEDS: HEPARIN SOD 5,000 UNIT/0.5 ML VIAL SQ SCH (09:14)
--- NOTE | 2018-04-05 12:05 | Cardiology Consultation ---
Date of Consultation April 05, 2018 Assessment & Plan (1) Chest pain: I believe that her discomfort is unlikely to be cardiac in origin. Believe it is from her cervical radiculopathy. I think it is best that she be discharged home with outpatient follow-up. If necessary, a stress test can be completed as an outpatient. (2) Left cervical radiculopathy: (3) HLD (hyperlipidemia): (4) History of ischemic cerebrovascular accident (CVA) with residual deficit: History of Present Illness Attending Physician: Huseyin Vieira MD History of Present Illness This is a 63-year-old female with no prior history of heart disease. Several years ago she did have a stroke which left her with aphasia. She also indicates that she had a carotid stent placed in [place] several years ago on the left side. She is not a diabetic. She has no prior history of hypertension. She does take atorvastatin and dual antiplatelet therapy. This patient also has a long history of cervical disc disease which has been treated at [facility] with several previous surgeries. She has chronic left arm and left upper shoulder discomfort which is not changed appreciably in the past several weeks to years. She denies shortness of breath or activity related chest pain. She has had no heart palpitations or dizziness. Due to the ongoing left arm discomfort she decided to come to the emergency department for an evaluation. She was admitted as a cardiac rule out. After admission her EKGs have shown no acute changes and her cardiac markers are negative. Allergies Allergy/AdvReac Type Severity Reaction Status Date / Time No Known Allergies Allergy Verified 04/04/18 15:44 Home Medications Home Medications Medication Instructions Recorded Confirmed Type aspirin, buffered 325 mg PO DAILY 04/04/18 04/04/18 History atorvastatin 40 mg PO HS 04/04/18 04/04/18 History bupropion HCl 150 mg PO BID 04/04/18 04/04/18 History clopidogrel 75 mg PO DAILY 04/04/18 04/04/18 History Patient History Medical History HLD (hyperlipidemia) (Chronic) History of ischemic cerebrovascular accident (CVA) with residual deficit ( Chronic) H/o L MCA infarct in August 2016 requiring transfer to [place] for L ICA stent placement. Has residual aphasia and R facial droop. Mood disorder (Chronic) Surgical History H/O cervical spine surgery (Resolved) Has had multiple neck surgeries, most recently 2009 in [place] H/O Spinal surgery (Resolved) Family History Grandfather (Maternal) Heart disease Grandmother (Paternal) Heart disease Other Alzheimer disease Social History Current Living Situation: Alone Other Information That Helps Us Care for You: No Feels Safe at Home: Yes Safety Concerns: Feels Safe At This Time Smoking Status: Former smoker Hx Alcohol Use: Yes Alcohol Intake Frequency: holidays/special occasions only Hx Substance Use: No Beliefs That Will Affect Care: None Preferred Language: Icelandic Communication Ability: Effective Chemistry Quality Control Analyst Required: No Review of Systems Review of Systems: See HPI for pertinent positives. All other 10 point review of systems are negative. She has an expressive aphasia related to her previous stroke and no other lateralizing signs. Physical Exam 2 Vital Signs (Past 24 Hours): Last Vital Signs Temp 36.6 C 04/05/18 11:14 Pulse 60 04/05/18 11:14 Resp 18 04/05/18 11:14 BP 112/71 04/05/18 11:14 Pulse Ox 96 04/05/18 11:14 Physical Exam: General: no acute distress and stated age Head: normocephalic, no masses, lesions, tenderness or abnormalities Eyes: conjunctiva are pink and non-injected, sclera clear Neck: supple, no adenopathy, no bruits, normal jugular venous pulse, no hepatojugular reflux Chest: normal shape and normal respiratory effort Lungs: clear to auscultation and percussion Cardiac Exam: - regular rate & rhythm, no murmurs gallops or rubs - normal S1, normal S2 Pulses: 2(+) throughout Abdomen: abdomen soft, non-tender, no abnormal masses and no hepatosplenomegaly Musculoskeletal: no gait disturbance, no joint inflammation, no deforming arthritis Extremities: no edema and no cyanosis Neuro: grossly normal exam Results & Data Laboratory Results Laboratory Results - last 24 hr 04/04/18 04/04/18 04/04/18 15:20 15:20 15:20 WBC 7.27 RBC 4.50 Hgb 14.0 Hct 40.5 MCV 90.0 MCH 31.1 MCHC 34.6 RDW Std Deviation 46.3 RDW Coeff of Frankie 14.1 Plt Count 306 MPV 9.7 Immature Gran % (Auto) 0.0 Neut % (Auto) 63.5 Lymph % (Auto) 27.5 [place] % (Auto) 7.7 Eos % (Auto) 1.0 Baso % (Auto) 0.3 Immature Gran # (Auto) 0.00 Neut # (Auto) 4.62 Lymph # (Auto) 2.00 [place] # (Auto) 0.56 Eos # (Auto) 0.07 Baso # (Auto) 0.02 PT 10.2 INR 1.0 APTT 24.9 PTT Ratio 1.0 Sodium 138 Potassium 3.8 Chloride 104 Carbon Dioxide 28 Anion Gap 6.0 BUN 13 Creatinine 1.09 Est Cr Clr Drug Dosing 48.8 Est GFR ( Amer) 63.5 Est GFR (Non-Af Amer) 54.7 BUN/Creatinine Ratio 12.1 Glucose 114 H Calcium 9.4 Troponin I < 0.015 Triglycerides Cholesterol LDL Cholesterol, Calc VLDL Cholesterol, Calc HDL Cholesterol Cholesterol/HDL Ratio 04/04/18 04/04/18 04/05/18 18:34 21:15 03:11 WBC RBC Hgb Hct MCV MCH MCHC RDW Std Deviation RDW Coeff of Frankie Plt Count MPV Immature Gran % (Auto) Neut % (Auto) Lymph % (Auto) [place] % (Auto) Eos % (Auto) Baso % (Auto) Immature Gran # (Auto) Neut # (Auto) Lymph # (Auto) [place] # (Auto) Eos # (Auto) Baso # (Auto) PT INR APTT PTT Ratio Sodium 141 Potassium 3.6 Chloride 109 H Carbon Dioxide 30 Anion Gap 2.0 L BUN 12 Creatinine 0.93 Est Cr Clr Drug Dosing 57.2 Est GFR ( Amer) 76.9 Est GFR (Non-Af Amer) 66.3 BUN/Creatinine Ratio 12.8 Glucose 86 Calcium 9.0 Troponin I < 0.015 < 0.015 < 0.015 Triglycerides 78 Cholesterol 128 LDL Cholesterol, Calc 45 VLDL Cholesterol, Calc 16 HDL Cholesterol 67 Cholesterol/HDL Ratio 2 04/05/18 03:11 WBC 6.21 RBC 4.22 Hgb 12.8 Hct 38.1 MCV 90.3 MCH 30.3 MCHC 33.6 RDW Std Deviation 46.5 H RDW Coeff of Frankie 14.0 Plt Count 281 MPV 9.6 Immature Gran % (Auto) Neut % (Auto) Lymph % (Auto) [place] % (Auto) Eos % (Auto) Baso % (Auto) Immature Gran # (Auto) Neut # (Auto) Lymph # (Auto) [place] # (Auto) Eos # (Auto) Baso # (Auto) PT INR APTT PTT Ratio Sodium Potassium Chloride Carbon Dioxide Anion Gap BUN Creatinine Est Cr Clr Drug Dosing Est GFR ( Amer) Est GFR (Non-Af Amer) BUN/Creatinine Ratio Glucose Calcium Troponin I Triglycerides Cholesterol LDL Cholesterol, Calc VLDL Cholesterol, Calc HDL Cholesterol Cholesterol/HDL Ratio Medications Administered Current Inpatient Medications Acetaminophen (Tylenol) 650 mg PO Q4H PRN PRN Reason: Pain or Fever Stop: 05/04/18 18:43 Aspirin Buffered (Ascriptin) 325 mg PO DAILY [facility] Stop: 05/05/18 08:59 Last Admin: 04/05/18 09:13 Dose: 325 mg Atorvastatin Calcium (Lipitor) 40 mg PO HS TEJ Stop: 05/04/18 20:59 Last Admin: 04/04/18 21:23 Dose: 40 mg Bupropion HCl (Wellbutrin-Sr) 150 mg PO BID TEJ Stop: 05/04/18 20:59 Last Admin: 04/05/18 09:13 Dose: 150 mg Clopidogrel Bisulfate (Plavix) 75 mg PO DAILY TEJ Stop: 05/05/18 08:59 Last Admin: 04/05/18 09:13 Dose: 75 mg Heparin Sodium (Porcine) (Heparin Sodium (Porcine)) 5,000 units SQ Q12 TEJ Stop: 05/04/18 20:59 Last Admin: 04/05/18 09:14 Dose: Not Given Nitroglycerin (Nitrostat) 0.4 mg SL UD PRN PRN Reason: Chest Pain Stop: 05/04/18 15:20 Last Admin: 04/04/18 15:34 Dose: 0.4 mg Ondansetron HCl (Zofran) 4 mg IV Q6H PRN PRN Reason: Nausea Stop: 05/04/18 18:43 Polyethylene Glycol (Miralax Powder Packet) 17 gm PO DAILY PRN PRN Reason: Constipation Stop: 05/04/18 18:43
--- NOTE | 2018-04-05 12:25 | Hospitalist Progress Note ---
Date of Service April 05, 2018 Assessment & Plan (1) Chest pain: This is a 63-year-old female with a PMH of left MCA infarct in August 2016 with residual expressive aphasia and R facial droop, HLD and cervical spine radiculopathy who presents with intermittent chest pain. -Atypical presentation with left chest pressure, intermittent, worse with rest -Experiences chronic left wrist numbness, attributed to cervical stenosis -R/o ACS; risk factors include HLD -Cervical disc disease possibly contributing to pain -Serial troponins and EKGs unremarkable -CXR-no acute abnormalities -Appreciate cardiology input and recommendation -We will have outpatient cardiology follow-up for further testing if indicated (2) Left cervical radiculopathy: H/o multiple surgeries, most recently in [place] in 2009 -Has chronic paresthesias in L wrist -Tylenol PRN -Likely the cause of atypical presentation for chest pain (3) HLD (hyperlipidemia): Continue home dose atorvastatin (4) History of ischemic cerebrovascular accident (CVA) with residual deficit: History of L MCA infarct in August 2016 requiring tPA and then transfer to [place] for L ICA stent placement -MRI revealed small hemorrhagic conversion in L MCA region -Initially had many deficits, now with expressive aphasia and R facial droop only -Continue aspirin 325mg and plavix 75mg daily -No acute neurological symptoms (5) Mood disorder: Continue Wellbutrin DVT Ppx: SQ heparin Code status: FULL code PCP: Josue Law Dispo: Observation telemetry. Plan to return home once medically stable. Discharged home today No change in medications Outpatient follow-up with sampler pickup and regular follow-up with primary care provider Subjective She is a 63-year-old female with significant past medical history of multiple cervical spine surgery, history of systemic stroke and is status post right carotid arterial stent placement was admitted yesterday with the atypical chest pain. 04/05 The patient was seen and examined in telemetry unit She denies any chest pain and/or palpitation Her troponins and EKGs were unremarkable She was seen by sampler pickup and cleared to go home Musculoskeletal: + neck pain and + joint pain; no muscle weakness Neurologic: + paresthesia (Left wrist (chronic from cervical stenosis) ) and + abnormal speech (residual aphasia from 2017 CVA) Physical Exam 2 Vital Signs (Past 24 Hours): Last Vital Signs Temp 36.6 C 04/05/18 11:14 Pulse 60 04/05/18 11:14 Resp 18 04/05/18 11:14 BP 112/71 04/05/18 11:14 Pulse Ox 96 04/05/18 11:14 Constitutional: WD/WN, vitals as above Eyes: PERRL, conjunctivae normal, anicteric sclerae ENMT: external ear and nose normal, oropharynx normal Neck: trachea midline, no thyromegaly Respiratory: normal respiratory effort, lungs clear to auscultation Cardiovascular: Rate/Rhythm: regular rate and regular rhythm Heart Sounds: normal S1 and normal S2 Gastrointestinal (Abdomen): normal bowel sounds, soft, nontender, no hepatosplenomegaly Musculoskeletal: 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 No focal sensory and motor deficit appreciated Results & Data Laboratory Results Short CBC 04/04/18 04/05/18 Range/Units 15:20 03:11 WBC 7.27 6.21 (4.8-10.8) K/uL Hgb 14.0 12.8 (12.0-16.0) g/dL Hct 40.5 38.1 (37-47) % Plt Count 306 281 (130-400) K/uL BMP 04/04/18 04/05/18 15:20 03:11 Sodium 138 141 Potassium 3.8 3.6 Chloride 104 109 H Carbon Dioxide 28 30 BUN 13 12 Creatinine 1.09 0.93 Glucose 114 H 86 Calcium 9.4 9.0 Cardiac Enzymes 04/04/18 04/04/18 04/04/18 Range/Units 15:20 18:34 21:15 Troponin I < 0.015 < 0.015 < 0.015 (0-0.045) ng/ml 04/05/18 Range/Units 03:11 Troponin I < 0.015 (0-0.045) ng/ml Medications Administered Current Inpatient Medications Acetaminophen (Tylenol) 650 mg PO Q4H PRN PRN Reason: Pain or Fever Stop: 05/04/18 18:43 Aspirin Buffered (Ascriptin) 325 mg PO DAILY TEJ Stop: 05/05/18 08:59 Last Admin: 04/05/18 09:13 Dose: 325 mg Atorvastatin Calcium (Lipitor) 40 mg PO HS TEJ Stop: 05/04/18 20:59 Last Admin: 04/04/18 21:23 Dose: 40 mg Bupropion HCl (Wellbutrin-Sr) 150 mg PO BID [facility] Stop: 05/04/18 20:59 Last Admin: 04/05/18 09:13 Dose: 150 mg Clopidogrel Bisulfate (Plavix) 75 mg PO DAILY [facility] Stop: 05/05/18 08:59 Last Admin: 04/05/18 09:13 Dose: 75 mg Heparin Sodium (Porcine) (Heparin Sodium (Porcine)) 5,000 units SQ Q12 [facility] Stop: 05/04/18 20:59 Last Admin: 04/05/18 09:14 Dose: Not Given Nitroglycerin (Nitrostat) 0.4 mg SL UD PRN PRN Reason: Chest Pain Stop: 05/04/18 15:20 Last Admin: 04/04/18 15:34 Dose: 0.4 mg Ondansetron HCl (Zofran) 4 mg IV Q6H PRN PRN Reason: Nausea Stop: 05/04/18 18:43 Polyethylene Glycol (Miralax Powder Packet) 17 gm PO DAILY PRN PRN Reason: Constipation Stop: 05/04/18 18:43
[2018-04-06 06:40] LABS: Estimated Average Glucose 120 mg/dl
--- NOTE | 2018-04-06 08:41 | Discharge Summary ---
Date of Service April 06, 2018 Admission HPI Per Admitting Provider This is a 63-year-old female with a PMH of left MCA infarct in August 2016 with residual expressive aphasia and R facial droop, HLD and cervical spine radiculopathy who presents with intermittent chest pain. Patient states that she has been experiencing left-sided heaviness intermittently over the past few months, but has been happening more frequently this week. Pain is non- radiating and patient denies any associated shortness of breath, diaphoresis, nausea or vomiting. Denies personal history of IN or cardiac workup in the past. Is on aspirin and plavix for history of CVA with carotid stent placement at [place] in August 2016. Admission Exam Per Admitting Provider Vital Signs (Past 24 Hours): Last Vital Signs Temp 36.6 C 04/04/18 15:02 Pulse 60 04/04/18 16:07 Resp 20 04/04/18 16:07 BP 126/81 04/04/18 16:07 Pulse Ox 98 04/04/18 16:07 Physical Exam: General Appearance: WD/WN, no apparent distress, resting comfortably Head: normocephalic, atraumatic Eyes: normal inspection, PERRL, EOMI ENT: hearing grossly normal, pharynx normal (moist mucous membranes) Neck: supple, no JVD, no adenopathy Respiratory/Chest: No chest wall tenderness. Lungs clear to auscultation. No wheezes, rales or rhonci. No respiratory distress or accessory muscle use Cardiovascular: regular rate, rhythm, no murmur, normal peripheral pulses Abdomen/GI: normal bowel sounds, soft, non-tender to palpation Extremities/Musculoskelatal: normal inspection, no calf tenderness, normal capillary refill, no pedal edema Neurologic/Psych: alert, normal mood/affect, oriented x 3. +expressive aphasia , R facial droop (residual deficits from CVA) Skin: normal color, warm/dry Principal Diagnosis Atypical chest pain-no ACS, history of ischemic CVA Discharge Exam Constitutional WD/WN, vitals as above Eyes PERRL, conjunctivae normal, anicteric sclerae ENMT external ear and nose normal, oropharynx normal Neck trachea midline, no thyromegaly Respiratory normal respiratory effort, lungs clear to auscultation Cardiovascular Rate/Rhythm: regular rate and regular rhythm Heart Sounds: normal S1 and normal S2 Gastrointestinal (Abdomen) normal bowel sounds, soft, nontender, no hepatosplenomegaly Discharge Data Allergies Allergy/AdvReac Type Severity Reaction Status Date / Time No Known Allergies Allergy Verified 04/04/18 15:44 Consultations 04/04/18 16:51 ED Decision to Admit Stat 04/04/18 18:44 Consult Health Information Management DAILY 04/05/18 08:00 Consult Cardiology Routine Hospital Course (1) Chest pain: This is a 63-year-old female with a PMH of left MCA infarct in August 2016 with residual expressive aphasia and R facial droop, HLD and cervical spine radiculopathy who presents with intermittent chest pain. -Atypical presentation with left chest pressure, intermittent, worse with rest -Experiences chronic left wrist numbness, attributed to cervical stenosis -R/o ACS; risk factors include HLD -Cervical disc disease possibly contributing to pain -Serial troponins and EKGs unremarkable -CXR-no acute abnormalities -Appreciate cardiology input and recommendation -We will have outpatient cardiology follow-up for further testing if indicated (2) Left cervical radiculopathy: H/o multiple surgeries, most recently in [place] in 2009 -Has chronic paresthesias in L wrist -Tylenol PRN -Likely the cause of atypical presentation for chest pain (3) HLD (hyperlipidemia): Continue home dose atorvastatin (4) History of ischemic cerebrovascular accident (CVA) with residual deficit: History of L MCA infarct in August 2016 requiring tPA and then transfer to [place] for L ICA stent placement -MRI revealed small hemorrhagic conversion in L MCA region -Initially had many deficits, now with expressive aphasia and R facial droop only -Continue aspirin 325mg and plavix 75mg daily -No acute neurological symptoms (5) Mood disorder: Continue Wellbutrin DVT Ppx: SQ heparin Code status: FULL code PCP: Josue Law Dispo: Observation telemetry. Plan to return home once medically stable. Discharged home today No change in medications Outpatient follow-up with remelt sugar boiler and regular follow-up with primary care provider Total Time Total Time Spent Total Time Spent (In Minutes): 35 minutes Total Time Includes: Examination of the Patient, Discharge Planning, Medication Reconciliation and Communication With Other Providers Discharge Plan Discharge Items Patient Disposition: Home - Self-Care Reason For Visit: CHEST PAIN Discharge Diagnosis: Atypical chest pain-no ACS, history of ischemic CVA Condition: Good Discharge Goals: Decrease discomfort, Improve disease control and Improve function Activity: Resume your previous activity Non-emergency contact: Primary Care Provider Call non-emergency contact if: you have any medication questions and your symptoms worsen Follow-up/Referrals: Josue Law DO [Primary Care Provider] - 04/05/18 12:33 pm (Cardiology will call for appointment) Diet: Heart Healthy and Low Sodium (2gm) Addtl Provider Instructions: Cardiology will call for an appointment Prescriptions: Continue atorvastatin 40 mg tablet 40 mg PO HS RF: 0 bupropion HCl 150 mg tablet sustained-release 12 hr 150 mg PO BID RF: 0 clopidogrel 75 mg tablet 75 mg PO DAILY RF: 0 aspirin, buffered 325 mg Tablet 325 mg PO DAILY RF: 0 Stand-Alone Forms: [facility] Discharge Orders: Discharge Order (Routine); Ordered 04/05/18 Ordered By: Huseyin Vieira Admission Data Admit Date/Time: 04/04/18 17:56 Attending Provider: Huseyin Vieira Admit Provider: Miguelito Hernandez Primary Care Provider: Josue Law Other Providers: Miguelito Hernandez ; Darek Mcleod Service: Telemetry Other Interventions: Discharge Summary Assessment (RN) Last Done: 04/05/18 13:05 DC Date/Time DO NOT enter until pt leaves facility: 04/05/18 13:30
== END 2018-04-05 13:30 | disposition home or self-care (01) ==
LOC: 2S 15:01 → ED 15:01 → 2S 18:46